=== PATIENT | male | born 1955 | race Caucasian/White ===

== ENCOUNTER 2020-08-26 14:19 | Day surgery (SDCO) | payer MEDICARE, OTHER ==
[~2020-08-26] VITALS: Ht 175.3 cm; Wt 94.1 kg
[2020-08-26 15:02] LABS: BASOPHIL 1.1 % (0-2); EOSINOPHIL 6.1 % (0-7); HCT 42.4 % (37.0-47.0); HGB 14.1 g/dl (12.5-16.0); LYMPHOCYTE 24.3 % (15-48); MCHC 33.3 g/dL (32.0-36.0); MCV 87.1 fL (78.0-100.0); MONOCYTE 12.3 % (0-12); MPV 11.2 fL (6.0-9.5); NEUTROPHIL 55.8 % (41-80); NRBC 0; PLT 199 K/uL (150-400); RBC 4.87 M/uL (4.20-5.40); RDW 13.5 % (11.5-14.0); WBC 7.6 K/uL (4.0-10.5)
[2020-08-26 15:19] LABS: INR 1.03 (0.9-1.2); PROTHROMBIN TIME 12.8 SECONDS (11.4-13.6)
[2020-08-26 15:37] LABS: BILIRUBIN NEGATIVE (NEGATIVE); BLOOD 3+ Ery/uL (NEGATIVE); CLARITY HAZY (CLEAR); COLOR YELLOW (YELLOW); GLUCOSE (U) NORMAL (NORMAL); LEUKOCYTES NEGATIVE Leu/uL (NEGATIVE); NITRITE NEGATIVE (NEGATIVE); PROTEIN NEGATIVE (NEGATIVE); SPECIFIC GRAVITY 1.025 (1.001-1.030); UROBILINOGEN 0.2 mg/dL (0.2-1.0)
[2020-08-26 15:43] LABS: URINARY RBC 20-50
[2020-08-26 15:44] LABS: BACTERIA TRACE; SQUAMOUS EPITHELIAL CELLS RARE
[2020-08-26 15:51] LABS: CORONAVIRUS 2019 SARS-COV-2 NEGATIVE (NEGATIVE); INFLUENZA A NAA NEGATIVE (NEGATIVE)
[2020-08-26 15:55] LABS: ALBUMIN 3.6 g/dL (3.4-5.0); BILIRUBIN - TOTAL 0.6 mg/dL (0.2-1.0); CREATININE 1.27 mg/dL (0.67-1.17); GLOBULIN (CALCULATION) 3.1 g/dL; POTASSIUM 3.8 mmol/L (3.5-5.1); TOTAL PROTEIN 6.7 g/dL (6.4-8.2)
[2020-08-26 15:56] LABS: MAGNESIUM 1.9 mg/dL (1.8-2.4)
[2020-08-27 06:00] LABS: HCT 40.8 % (42.0-52.0); HGB 13.7 g/dl (13.2-18.0); MCH 29.1 pg (25.0-31.0); MCHC 33.6 g/dL (32.0-36.0); MCV 86.8 fL (78.0-100.0); MPV 10.9 fL (6.0-9.5); RBC 4.7 M/uL (4.70-6.00); RDW 13.4 % (11.5-14.0); WBC 8.2 K/uL (4.0-10.5)
[2020-08-27 06:34] LABS: CREATININE 1.3 mg/dL (0.67-1.17); POTASSIUM 4.3 mmol/L (3.5-5.1)
--- NOTE | 2020-08-27 13:20 | NUR ---
PT. IS OBS. PLEASE CONSIDER D/C OR ADMIT. THANK YOU.
--- NOTE | 2020-08-27 13:44 | NUR ---
ABDULKADIR BERGER, NOTIFIED OF PATIENT DIASTOLIC BLOOD PRESSURE ELEVATED. NO NEW ORDERS GIVEN. MD DONALDSON DID START PATIENT ON METOPROLOL BID THIS AM
[2020-08-28 04:27] LABS: CREATININE 1.29 mg/dL (0.67-1.17); POTASSIUM 4.4 mmol/L (3.5-5.1)
== END 2020-08-29 12:08 | disposition other institution (70) ==
LOC: FER 14:19 → EDSEX 14:19 → FMS 16:08
PROVIDERS: Internal Medicine Cardiovascular Disease; Nurse Practitioner Family; ADMIT Hospitalist
DX: I20.0 Unstable angina (principal); R07.2 Precordial pain; I37.1 Nonrheumatic pulmonary valve insufficiency; N18.30 Chronic kidney disease, stage 3 unspecified; Z20.822 Contact with and (suspected) exposure to COVID-19; Z94.0 Kidney transplant status; Z98.890 Other specified postprocedural states
CPT/HCPCS: 36415; 71045; 80048; 80053; 81001; 83735; 84484; 85025; 85610; 85730; 93005; G0378; U0002